=== PATIENT | female | born 1985 | race Caucasian/White ===

== ENCOUNTER 2016-08-25 21:08 | Emergency (ER) | payer MEDICAID ==
[~2016-08-25] VITALS: Ht 162.6 cm; Wt 89.5 kg
[~2016-08-25 21:08] MED LIST: AMOX250C17 PO
[2016-08-25] MEDS ORDERED: OMNIPAQUE 350 MG/ML, 100ML BOTTLE ONE (21:51)
[2016-08-25] MEDS ORDERED: HYDROmorphone 1 MG/ML, 1ML ONE (21:59)
[2016-08-25] MEDS ORDERED: ONDANSETRON 2MG/ML, 2ML ONE (21:59)
[2016-08-25] MEDS ORDERED: SODIUM CHLORIDE FLUSH 10ML SYR IVF ONE (22:00)
[2016-08-25] MEDS ORDERED: SODIUM CHLORIDE 0.9% 1,000ML IVBOLUS ONE (22:00)
[2016-08-25] MEDS ORDERED: HYDROmorphone 1 MG/ML, 1ML IVPush PRN (22:00)
[2016-08-25] MEDS ORDERED: ONDANSETRON 2MG/ML, 2ML IVPush ONE (22:00)
[2016-08-25 22:20] LABS: BLOOD UREA NITROGEN 13 mg/dL (7-18)
[2016-08-25 22:27] LABS: ASPARTATE AMINO TRANSFERASE 17 U/L (15-37)
[2016-08-26 00:05] VITALS: BP 130/73
== END 2016-08-26 00:15 | disposition home or self-care (01) ==
LOC: ED 08-26 00:09
DX: R10.84 Generalized abdominal pain (principal)
CPT/HCPCS: 36415; 74177; 80053; 81001; 83690; 84703; 85025; 96361; 96374; 96375; 99285; J1170; J2405; J7030; Q9967

== ENCOUNTER 2016-12-17 14:04 | Emergency (ER) | payer MEDICAID ==
[~2016-12-17] VITALS: Ht 162.6 cm; Wt 81.8 kg
[2016-12-17] MEDS ORDERED: SODIUM CHLORIDE 0.9% 1,000 ML IV ONE (14:22)
[2016-12-17] MEDS ORDERED: ONDANSETRON 2MG/ML, 2ML IVPush ONE (14:30)
[2016-12-17] MEDS ORDERED: SODIUM CHLORIDE FLUSH 10ML SYR IVF ONE (14:30)
[2016-12-17] MEDS ORDERED: HYDROmorphone 1 MG/ML, 1ML IVPush PRN (14:30)
[2016-12-17] MEDS ORDERED: ONDANSETRON 2MG/ML, 2ML ONE (14:32)
[2016-12-17] MEDS ORDERED: HYDROmorphone 1 MG/ML, 1ML ONE (14:33)
[2016-12-17 14:39] LABS: HEMATOCRIT 39.9 % (34.6-47.8); HEMOGLOBIN 13.5 g/dL (11.7-16.4); WHITE BLOOD COUNT 9.2 x10^3/uL (3.4-10)
[2016-12-17 14:51] LABS: ASPARTATE AMINO TRANSFERASE 15 U/L (15-37); BLOOD UREA NITROGEN 14 mg/dL (7-18)
[2016-12-17 15:09] LABS: PATH.CAST-FLAG NOT PRESENT; SPERM-FLAG NOT PRESENT; SRC-FLAG NOT PRESENT; XTAL-FLAG NOT PRESENT; YLC-FLAG NOT PRESENT
[2016-12-17 17:16] VITALS: BP 126/70
[2016-12-17] MEDS ORDERED: OMNIPAQUE 350 MG/ML, 100ML BOTTLE ONE (18:12)
== END 2016-12-17 17:21 | disposition home or self-care (01) ==
LOC: ED 15:27
DX: K42.9 Umbilical hernia without obstruction or gangrene (principal)
CPT/HCPCS: 36415; 74177; 80053; 81001; 83690; 84703; 85025; 87086; 96361; 96374; 96375; 99285; J1170; J2405; J7030; Q9967

== ENCOUNTER 2017-01-06 13:11 | Emergency (ER) | payer MEDICAID ==
[~2017-01-06] VITALS: Ht 162.6 cm; Wt 82.0 kg
[2017-01-06] MEDS ORDERED: HYDROmorphone 1 MG/ML, 1ML ONE ×2 (13:55→14:56)
[2017-01-06] MEDS: HYDROmorphone 1 MG/ML, 1ML IVPush PRN ×2 (14:03→14:57)
[2017-01-06] MEDS ORDERED: LORazepam 2 MG/ML, 1ML ONE (14:34)
[2017-01-06] MEDS ORDERED: HYDROmorphone 1 MG/ML, 1ML IV ONE (15:00)
[2017-01-06] MEDS ORDERED: LORazepam 2 MG/ML, 1ML IVPush ONE (15:00)
[2017-01-06] MEDS ORDERED: ONDANSETRON ODT 4 MG ONE (16:08)
[2017-01-06 16:30] VITALS: BP 134/78
[2017-01-06] MEDS ORDERED: ONDANSETRON ODT 4 MG PO ONE (16:30)
== END 2017-01-06 16:32 | disposition home or self-care (01) ==
LOC: ED 13:56
DX: R10.33 Periumbilical pain (principal)
CPT/HCPCS: 96374; 96375; 99284; J1170; J2060; Q0162

== ENCOUNTER → 2018-03-07 | Outpatient (CLI) | payer MEDICAID ==
[~2018-03-07] MED LIST changes: +NONE PER PT
== END | disposition home or self-care (01) ==
LOC: STAR 12:21
PROVIDERS: ATTEND Obstetrics & Gynecology Female Pelvic Medicine and Reconstructive Surgery
DX: Z02.9 Encounter for administrative examinations, unspecified (principal)